=== PATIENT | female | born 1990 | race Caucasian/White ===

== ENCOUNTER 2024-02-23 00:23 | Emergency (ER) | payer BC, SELFPAY ==
[2024-02-23 00:29] VITALS: BP 143/93; BMI 36.5
[2024-02-23 01:08] LABS: % Basophils 0.3 % (0-2); % Eosinophils 2.3 % (0-6); % Immature Granulocytes 0.3 % (0-0.5); % Lymphocytes 31.6 % (20.5-51.1); % Monocytes 5.8 % (1.7-9.3); % Neutrophils 59.7 % (42.2-75.2); Absolute Eosinophils 0.3 10^3/uL (0-0.7); Absolute Lymphocytes 3.5 10^3/uL (1.2-3.4); Absolute Monocytes 0.7 10^3/uL (0.1-0.6); Absolute Neutrophils 6.7 10^3/uL (1.4-6.5); Hematocrit 35.4 % (37.0-47.0); Hemoglobin 12.9 g/dL (12.0-16.0); Mean Corp Hgb Conc. 36.4 g/dL (33.0-37.0); Mean Corpuscular Hgb 29.6 pg (27.0-31.0); Mean Corpuscular Volume 81.2 fL (81.0-99.0); Nucleated Red Blood Cells % 0 %; Platelet Count 179 10^3/uL (130-400); Red Blood Cell Count 4.36 10^6/uL (4.20-5.40); Red Cell Dist. Width 12.5 % (11.5-14.5); White Blood Cell Count 11.1 10^3/uL (4.8-10.8)
[2024-02-23 01:20] LABS: HCG, Serum Qualitative Screen Positive
[2024-02-23 01:23] LABS: ALT (SGPT) 25 U/L (0-35); AST (SGOT) 26 U/L (14-36); Albumin 3.9 g/dl (3.5-5.0); Alkaline Phosphatase 110 U/L (38-126); Blood Urea Nitrogen 9 mg/dl (7-17); Calcium 10.1 mg/dl (8.4-10.2); Carbon Dioxide 23 mmol/L (22-30); Chloride 104 mmol/L (98-107); Estimated Creatinine Clearance 96 ml/min; Glucose 98 mg/dl (70-99); Potassium 4.3 mmol/L (3.5-5.1); Sodium 133 mmol/L (135-145); Total Bilirubin 0.4 mg/dl (0.2-1.3); Total Protein 6.6 g/dl (6.3-8.2); eGFR > 60.00
[2024-02-23 01:32] LABS: Troponin I < 0.012 ng/ml
[2024-02-23] MEDS: MAALOX 30 ML PO (02:13)
[2024-02-23 02:15] VITALS: BP 131/87
--- NOTE | 2024-02-23 02:27 | ED.GENMED ---
History of Present Illness
General
Chief Complaint: Breathing Problem
Source: patient
Exam Limitations: none
Time Seen by Provider: 02/23/24 00:49
Nursing documentation reviewed up to this point in time: agreed with
Travel History
Have you had any contact with someone who has COVID-19?: No
Do you have any symptoms of coronavirus? Fever > 100 degrees, chills, cough, shortness of breath, sore throat, loss of taste or smell, muscle aches, or headache?: Yes
Symptoms:: shortness of breath, cough
History of Present Illness
History of Present Illness:
This is a 34-year-old woman with history of short stature syndrome, history of scoliosis with prior scoliosis surgery 1999. She has history of migraine headaches, asthma as well as history of GERD. Recently discovered she was with blood
work by PCP February 01 confirming . At that time considered approximately 5 to 6 weeks . She has an initial ultrasound scheduled for March 11 along with an initial visit with ENVIRONMENTAL EMERGENCIES ASSISTANT shortly thereafter.
She awoke tonight around 10 PM with mid substernal chest pain, pressure as well as mild shortness of breath. Unclear if this felt like her heartburn or not but due to she became concerned and called 911. Prehospital EKG unremarkable.
Patient admits to feeling improved since arrival to the ED.
She does have history of asthma, generally well-controlled and generally exacerbates with URIs as well as seasonal allergies. She has Claritin at home but has not been taking this recently. She has not needed maintenance inhalers for quite some
time. She does utilize albuterol/rescue inhaler sporadically on rare occasions but ran out of this a few months ago. She was unsure if shortness of breath was asthma related but she admits that she has not had a cough recently, she has however had
intermittent nasal congestion more so when she is outdoors and more so during spring months. She denies fever nor chills, no leg pain or swelling. No recent travel.
She has had no dysuria and urgency and or hematuria, no abdominal pain, no vaginal discharge no bleeding.
She has history of anxiety/depression and does admit to intermittent anxiety but overall symptoms have been well-controlled.
Past History
Past History
ED Past Medical History: Asthma, GERD, Psychiatric (Anxiety/depression), Other (Scoliosis/orthopedic issues ), Other (Migraine headaches) and Other (Patient has a history of chondral dysplasia punctata Happle syndrome)
ED Past Surgical History: Appendectomy, Cholecystectomy and Orthopedic (She has a history of back surgery to correct scoliosis, and leg lengthening of the right leg.)
Social History
Tobacco: Non-smoker
Alcohol: Occasional
Personal: Single
Living: with roommate (Lives with her boyfriend)
Employment: Employed (Student )
Family History
Family History: Negative Early CAD
Phy Exam
Physical Exam
Physical Exam:
GENERAL: 34-year-old woman, short stature, is bright and alert, pleasant, appears in no acute distress.
EYE: anicteric
NECK: Supple, nontender, no meningismus, no significant adenopathy.
ENT: oral mucosa is moist. No rhinorrhea.
CARDIAC: Regular rate and rhythm. no murmur.
LUNGS: Clear breath sounds bilaterally, no acute respiratory distress, no wheezes/rales/rhonchi
ABDOMEN: Soft, nondistended, without focal tenderness, no r/g, normoactive BS.
NEUROLOGICAL: Alert and oriented x3, no focal neuro deficits. Gait is steady.
SKIN: Warm and dry, normal color, skin intact. No rash.
MUSCULOSKELETAL: No C/C/E. peripheral pulses are full and equal b/l. No palpable tenderness.
PSYCH: Normal and appropriate interaction.
Scores
Heart Failure Risk
Heart Failure Risk Score: Not Applicable
Course
Orders/Labs/Results
Orders:
Orders
02/23/24 00:27
Electrocardiogram (*1) Urgent
Reason for Study: Other
Other Reason for Exam: Respiratory Distress
Cardiac Monitoring- Treatment ONCE
EKG- Treatment ONCE
IV Insert/Care/Rem.- Treatment PRN
Pulse Ox/cont/shift [RESP] Urgent
Quantity: 1
Special Instructions: continuous pulse ox
02/23/24 00:40
Test Result ONCE
02/23/24 01:01
Complete Blood Count/With Diff Urgent
Comprehensive Metabolic Panel Urgent
HCG, Serum Qualitative Screen Urgent
Troponin I Urgent
02/23/24 01:35
Mag Hydrox/Al Hydrox/Simeth [Maalox] 30 ml PO NOW STA
Abnormal Lab Results
02/23/24
01:01
WBC 11.1 H 10^3/uL
(4.8-10.8)
Hct 35.4 L %
(37.0-47.0)
MPV 11.0 H fL
(7.4-10.4)
Absolute Neuts (auto) 6.7 H 10^3/uL
(1.4-6.5)
Absolute Lymphs (auto) 3.5 H 10^3/uL
(1.2-3.4)
Absolute Monos (auto) 0.7 H 10^3/uL
(0.1-0.6)
Sodium 133 L mmol/L
(135-145)
Creatinine 0.4 L mg/dL
(0.6-1.0)
02/23/24 01:01
02/23/24 01:01
Vital Signs
Initial and Last Documented VS:
Initial Vital Signs
Pulse Ox
98
02/23/24 00:27
Last Documented Vital Signs
Temp Pulse Resp BP Pulse Ox
98.3 F 60 15 131/87 97
02/23/24 00:29 02/23/24 02:15 02/23/24 02:15 02/23/24 02:15 02/23/24 02:15
MDM/Problems Addressed
Differential Diagnosis Includes:
34-year-old woman presents with abrupt onset of substernal chest discomfort, burning in nature as well as a sense of inability to take a deep breath.
Unremarkable EKG prehospital as well as upon arrival to the ED.
Symptoms improved but have not completely resolved.
Exam is overall benign.
Concern for GERD, exacerbation of asthma, ACS is unlikely.
Recently found out that she is , PE is a consideration however reassuring that symptoms have improved without intervention and other than early , no other risk factors for thromboembolism.
Labs are pending. Will consider antacid.
Chronic conditions affecting care: Asthma and Other (First trimester ; history of GERD)
*Pulse Oximetry
Patient hypoxic: no
*EKG
Interpreted by ED Provider?: Yes
Interpretation: normal
Comparison EKG: no comparison EKG present
Rate: normal
Rhythm: sinus
Willet: normal axis
Interval: normal interval
QRS Pattern: normal QRS
Ischemia: no ischemia
*Licensed Sales Producer Interpretation
Rate: normal
Interpretation: normal
Rhythm: sinus
*Critical Care Note
Total Time (30-74mins, 75-104mins- exclusive of procedures): Not Applicable
Update Note
Update Note:
02/23/2024 0241 AM
Patient feeling improved with complete relief of chest pain, dyspnea after a dose of Maalox.
Labs are reassuring, unremarkable.
hCG is positive as expected. She continues to have no abdominal pain, no nausea or vomiting.
I suspect chest pain and dyspnea tonight were GERD related and patient does admit that symptoms were quite similar to previous episodes of GERD.
Other than no significant risk factors for thromboembolism and with prompt resolution of symptoms with antacid is reassuring; thromboembolism is unlikely.
She does have history of intermittent asthma, lungs remain clear to auscultation. We did discuss that antihistamine such as Claritin or Zyrtec are safe in , albuterol as needed is safe in and prescription has been refilled.
Tylenol is safe for as needed pain, and acids such as Mylanta, Maalox or Tums are safe in .
She has follow-up appointment scheduled with ENVIRONMENTAL EMERGENCIES ASSISTANT as well as ultrasound.
Recommend follow-up with PCP as well.
Return precautions discussed.
ED Attending Note
-
Portions of this chart may have been created with voice recognition software.� Occasional wrong word or��sound alike� substitutions may have occurred due to the inherent limitations of voice recognition software.
Discharge Plan
Departure
Patient Disposition: Home (Routine Discharge)
Date of Disposition: 02/23/24
Time of Disposition: 02:38
Patient with high blood pressure during this ER visit?: No
Condition: Good
Discharge Problem:
Chest pain due to GERD, First trimester
Instructions: Acid reflux (gastroesophageal reflux disease) during
Prescriptions:
New
albuterol sulfate [ProAir HFA] 90 mcg/actuation Hfa Aerosol Inhaler
2 puff INHALATION Q4HPRN PRN (Reason: shortness of breath/cough) Qty: 90 0RF
Rx Instructions:
Dispense with spacer
No Action
ascorbic acid (vitamin C) [Vitamin C] 500 MG tablet
500 mg PO PRN PRN (Reason: supplement)
cetirizine 10 MG tablet
5 mg PO DAILY
desog-e.estradiol/e.estradiol [Kariva (28)] 1 EACH tablet
1 tab PO DAILY
fluticasone propion-salmeterol [Wixela Inhub] 1 EACH blister with device
1 ea IH DAILY
cyclosporine [Restasis] 10 DROPS dropperette
0.4 ml OPHTHALMIC BID
lifitegrast [Xiidra] 1 EACH dropperette
1 ea OP BID
light mineral oil-min oil (PF) [Soothe XP (PF)] 1 EACH dropperette
1 ea OP BID
Now Super Enzymes
1 tab PO DAILY
Magnesium Powder
2 scoop PO DAILY
acetaminophen 325 MG tablet
650 mg PO Q4HPRN PRN (Reason: mild pain) Qty: 1 0RF
ibuprofen 200 MG tablet
400 - 600 mg PO Q6HPRN PRN (Reason: moderate pain) Qty: 1 0RF
oxycodone 5 MG tablet
5 mg PO Q4HPRN PRN (Reason: breakthrough/severe pain) Qty: 15 0RF
ondansetron [Zofran ODT] 8 MG tablet,disintegrating
4 mg PO Q8HPRN PRN (Reason: nausea) 2 Days Qty: 6 0RF
prednisone 20 mg tablet
40 mg PO DAILY Qty: 6 0RF
Referrals:
Alma Abdalla PA-C [Family Provider] - Call in 1-3 days for appt
Interventions
Interventions:
*Risk Screen - Suicide Last Done: 02/23/24 00:29
*General Assessment Last Done: 02/23/24 00:29
*Neglect/Abuse Screening Last Done: 02/23/24 00:29
ED- Fall Risk Assessment Last Done: 02/23/24 00:29
*ED COVID-19 Vaccine History Last Done: 02/23/24 00:29
*Nursing Disposition Last Done: 02/23/24 02:47
ED- Cardiac Assessment Last Done: 02/23/24 01:04
ED- Pulmonary Assessment Last Done: 02/23/24 01:04
Discharge Date and Time
Print Language: MALDIVIAN
== END 2024-02-23 02:47 | disposition home or self-care (01) ==
LOC: EMR 00:23
PROVIDERS: EMERGENCY PHYSICIAN Emergency Medicine; FAMILY PHYSICIAN Physician Assistant Medical
DX: O99.891 Other specified diseases and conditions complicating pregnancy (principal); R07.89 Other chest pain; K21.9 Gastro-esophageal reflux disease without esophagitis; M41.9 Scoliosis, unspecified; Z90.49 Acquired absence of other specified parts of digestive tract
CPT/HCPCS: 99283; 80053; 84484; 84703; 85025; 93005

== ENCOUNTER → 2024-03-11 12:39 | Outpatient (REF) | payer BC, SELFPAY | LOC: HWRAD 12:39 | PROVIDERS: ATTENDING PHYSICIAN Obstetrics & Gynecology Gynecology; FAMILY PHYSICIAN Physician Assistant Medical | DX: Z34.90 Encounter for supervision of normal pregnancy, unspecified, unspecified trimester (principal) | CPT/HCPCS: 76801 ==